=== PATIENT | male | born 1975 | race Two or more races ===

== ENCOUNTER 2018-05-14 06:11 | Day surgery (SDC) | payer OTHER ==
[~2018-05-14 06:11] MED LIST: ATENOLOL25 MG PO
[2018-05-14] MEDS ORDERED: PERCOCET 5-3251 EACH PO (08:26)
[2018-05-14] MEDS ORDERED: RECTICARE30 GM TOP (08:27)
== END 2018-05-14 12:50 | disposition home or self-care (01) ==
LOC: CIR.AMB 06:11
DX: K60.3 Anal fistula (principal)

== ENCOUNTER → 2021-02-16 | Outpatient (CLI) | payer OTHER ==
[~2021-02-16] MED LIST changes: +PERCOCET 5-3251 EACH PO; +RECTICARE30 GM TOP
== END | disposition home or self-care (01) ==
LOC: RAD 13:31
PROVIDERS: ATTEND Physical Medicine & Rehabilitation
DX: S90.31XA Contusion of right foot, initial encounter (principal); S92.401A Displaced unspecified fracture of right great toe, initial encounter for closed fracture

== ENCOUNTER 2024-01-10 10:21 | Outpatient (CLI) | payer OTHER | END 2024-01-10 11:00 | disposition home or self-care (01) | LOC: MRI 10:21 | PROVIDERS: ATTEND Physical Medicine & Rehabilitation | DX: M54.50 Low back pain, unspecified (principal) ==

== ENCOUNTER 2024-10-15 12:18 | Outpatient (CLI) | payer OTHER | END 2024-10-15 12:33 | disposition home or self-care (01) | LOC: EKG 12:18 | PROVIDERS: ATTEND General Practice | DX: R00.2 Palpitations (principal); R42 Dizziness and giddiness ==

== ENCOUNTER 2024-10-15 13:21 | Inpatient (IN) | payer OTHER ==
[~2024-10-15] VITALS: Ht 182.9 cm; Wt 142.0 kg
--- NOTE | 2024-10-15 13:55 | NUR ---
PTE ALERTA Y ORIENTADO X3 REFIERE QUE ESTABA EN ARIANE MEDICA Y LE REALIZARON EKG FUE LA DRA. DUGGAN Y LA MISMA LO TRAJO A LA MIKAEL DE EMERGENCIA. SE MIDEN S/V Y SE LE REALIZA [place] UN EKG SE PRESENTA A DR. MOELLER Y SE UBICA PTE.
[2024-10-15] MEDS ORDERED: ENOXAPARIN SODIUM 80 MG/0.8 ML SYRINGE SUBCUTANEO SCH (13:58)
[2024-10-15] MEDS ORDERED: DILTIAZEM HCL 125MG/25ML VIAL IV SCH (14:00)
[2024-10-15] MEDS ORDERED: ASPIRIN 81 MG TAB.CHEW PO SCH (14:00)
[2024-10-15 14:30] LABS: BASO % 0.7 % (0.1-1.2); EOS # 0.09 (0.04-0.54); EOS % 1.5 % (0.7-7.0); LYMPH # 2.05 (1.18-3.74); LYMPH % 35.0 % (19.3-53.1); MEAN PLATELET VOLUME 11.60 fl (9.4-12.4); MONO # 0.70 (0.24-0.82); MONO % 12.0 % (4.7-12.5); NEUT # 2.97 (1.56-6.13); NEUT % 50.8 % (34.0-71.1); RED CELL DISTRIBUTION WIDTH 11.6 % (11.6-14.4)
--- NOTE | 2024-10-15 14:47 | NUR ---
SE EDUCA ACERCA DE TX ORDENADO Y REFIERE ENTENDER. SE CONECTA A MONITOR CARDIACO Y OXIMETRIA DE PUL[place]. SE CANALIZA Y COLECTAN MUESTRAS DE LABORATORIO MEDIANTE MEDIDAS ASEPTICAS. SE ADMINISTRAN MEDICAMENTOS LEX ORDEN MEDICA.
[2024-10-15 15:01] LABS: INR 1.08
[2024-10-15 15:50] LABS: BUN CREA RATIO 20.0 (7.0-25.0); CREATININE SERUM 0.96 mg/dL (0.70-1.30); GFR 82.91; GLUCOSE FASTING 94.0 mg/dL (65-100); OSMOLALITY SERUM 289.0 MOSM/KG (275-295)
[2024-10-15] MEDS ORDERED: 0.9 % SODIUM CHLORIDE 1,000 ML IV SCH (20:45)
[2024-10-15] MEDS ORDERED: ACETAMINOPHEN 500 MG GEL..CAP PO PRN (20:45)
[2024-10-16 08:53] LABS: CHOL HDL RATIO 3.0 (0-5.0); HDL 49.0 mg/dl (40-60); LDL 80.0 mg/dl (0-130); TSH 0.821 uIU/mL (0.358-3.74); VLDL 15.0 (0-39)
[2024-10-16] MEDS ORDERED: APIXABAN 5 MG TABLET PO SCH (09:00)
[2024-10-16] MEDS ORDERED: FAMOTIDINE/PF 20 MG in 0.9 % SODIUM CHLORIDE 8 ML IV PUSH SCH (09:00)
[2024-10-16] MEDS ORDERED: METOPROLOL SUCCINATE 25 MG TAB.SR.24H PO SCH (09:00)
[2024-10-16] MEDS ORDERED: ENOXAPARIN SODIUM 100 MG/ML SYRINGE SUBCUTANEO SCH (09:00)
[2024-10-16] MEDS ORDERED: METOPROLOL SUCCINATE 50 MG TAB.SR.24H PO SCH (09:00)
[2024-10-16 09:46] LABS: URINE APPEARANCE Clear; URINE BILIRRUBIN Negative (NEGATIVE); URINE BLOOD Negative; URINE COLOR Yellow; URINE GLUCOSE Negative (NEGATIVE); URINE KETONE Trace (NEGATIVE); URINE LEUKOCYTE Negative; URINE NITRATE Negative; URINE PROTEIN Negative (NEGATIVE); URINE UROBILINOGEN 0.2 E.U./dl
[2024-10-16 09:50] LABS: URINE BACTERIA 8.3 uL (0.0-1933); URINE EPITHELIAL CELLS 3.9 uL (0.0-38.8); URINE RBC 3.3 uL (0.0-20.8); URINE WBC 2.3 uL (0.0-23.2)
[2024-10-16 10:04] LABS: URINE CAST 0.43 uL (0.0-1.40)
[2024-10-16 10:23] VITALS: BP 136/82; O2SAT 100
[2024-10-16 17:42] VITALS: O2SAT 100
[2024-10-16 19:22] VITALS: O2SAT 98
[2024-10-16 21:13] VITALS: BP 137/93
[2024-10-17] VITALS: O2SAT 99
[2024-10-17 02:39] VITALS: BP 138/79; O2SAT 99
[2024-10-17 05:04] VITALS: O2SAT 90
[2024-10-17 08:00] VITALS: O2SAT 97
[2024-10-17 09:03] VITALS: BP 137/86; O2SAT 99
== END 2024-10-17 10:49 | disposition home or self-care (01) | DRG 310 ==
LOC: ER 13:21 → MEDI 20:43 → SEC-K 20:43 → MEDI 10-16 11:02
PROVIDERS: Emergency Medicine; General Practice; ADMIT Internal Medicine; ATTEND Internal Medicine
PROC: B24BZZZ Ultrasonography of Heart with Aorta (ICD-10-PCS; principal; 2024-10-15)
PROC: 4A12X4Z Monitoring of Cardiac Electrical Activity, External Approach (ICD-10-PCS; 2024-10-16)
DX: I48.0 Paroxysmal atrial fibrillation (principal); E66.9 Obesity, unspecified; I11.9 Hypertensive heart disease without heart failure

== ENCOUNTER 2024-12-09 07:17 | Outpatient (CLI) | payer OTHER | END 2024-12-09 07:18 | disposition home or self-care (01) | LOC: NUCLEAR 07:17 | PROVIDERS: ATTEND Internal Medicine | DX: R07.9 Chest pain, unspecified (principal) ==